=== PATIENT | male | born 1965 | race Caucasian/White ===

== ENCOUNTER → 2016-07-02 | Outpatient (CLI) | payer OTHER | LOC: GMAJ 11:22 | PROVIDERS: ATTEND Family Medicine | DX: E78.00 Pure hypercholesterolemia, unspecified (principal); Z12.5 Encounter for screening for malignant neoplasm of prostate | CPT/HCPCS: 84443; G0103 ==

== ENCOUNTER → 2016-07-05 | Outpatient (CLI) | payer BC, OTHER | LOC: GMAJ 14:30 | PROVIDERS: ATTEND Family Medicine | DX: Z79.899 Other long term (current) drug therapy (principal) ==

== ENCOUNTER → 2017-04-03 | Outpatient (CLI) | payer OTHER, BC | END | disposition home or self-care (01) | LOC: GMAJ 15:23 | PROVIDERS: ATTEND Family Medicine | DX: J30.89 Other allergic rhinitis (principal) ==

== ENCOUNTER → 2017-07-09 | Outpatient (CLI) | payer OTHER, BC | END | disposition home or self-care (01) | LOC: GMAJ 10:36 | PROVIDERS: ATTEND Family Medicine | DX: E78.2 Mixed hyperlipidemia (principal); E11.9 Type 2 diabetes mellitus without complications; I10 Essential (primary) hypertension; Z12.5 Encounter for screening for malignant neoplasm of prostate ==

== ENCOUNTER → 2017-08-25 | Outpatient (CLI) | payer OTHER, BC ==
--- NOTE | 2017-08-25 13:05 | US ---
EXAM: Testicular HISTORY: TESTICULAR PAIN COMPARISON: None TECHNIQUE: Grayscale and color Doppler sonographic evaluations of bilateral scrotums FINDINGS: Right testicle measures 4.9 x 3.2 x 2.6cm, with homogeneous echotexture. No concerning intratesticular mass nor abnormal vascularity. Epididymal head measures 1.0 x 1.0 x 0.5 cm. No hydrocele nor varicocele is detected. Left testicle measures 4.8 x 3.1 x 2.5cm, with homogeneous echotexture. No concerning intratesticular mass nor abnormal vascularity. Epididymal head measures 1.0 x 1.6 x 0.4 cm. No hydrocele nor varicocele is detected. IMPRESSION: 1. No intratesticular mass lesion, inflammation nor torsion on either side. 2. No hydrocele nor varicocele on either side. Electronically signed by: Anupam Bee MD 08/25/2017 1:05 PM [employer]
== END ==
LOC: US 11:22
PROVIDERS: ATTEND Physician Assistant
DX: N50.819 Testicular pain, unspecified (principal); N39.0 Urinary tract infection, site not specified

== ENCOUNTER 2017-08-30 14:35 | Emergency (ER) | payer OTHER, BC ==
--- NOTE | 2017-08-30 14:40 | ED.PDOC ---
History of Present Illness - General Chief Complaint: Abdominal Pain Stated Complaint: abdominal pain left side Time Seen by Provider: 08/30/17 14:39 Information Source: patient Exam Limitations: no limitations - History of Present Illness Initial Comments: Jeramy Ramos 51 y/o male stated that he had dull left sided abdominal pain this morning with feeling of urinary urgency and had vomited 2 times 2 hours after eating breakfast;no diarrhea,no constipation,.Had been treated for prostatitis last Friday after seeing his Md with complaint of urinary discomfort and blood in urine with antibiotics. Abdominal Pain Onset Location: [facility] Pain Radiation: other - anterior abdomen left side Quality: dull, intermittent Timing/Duration: 7-24 hours Improving Factors: nothing Worsening Factors: nothing Associated Symptoms: nausea/vomiting Review of Systems - Review of Systems Constitutional: States: no symptoms reported EENTM: States: no symptoms reported Respiratory: States: no symptoms reported Cardiology: States: no symptoms reported Gastrointestinal/Abdominal: States: see HPI Musculoskeletal: States: no symptoms reported Skin: States: no symptoms reported Neurological: States: no symptoms reported All other Systems: Reviewed and Negative Past Medical History (General) - Patient Medical History Hx Cardiac Disorders: Yes - NSTEMI;paroxysmal a fib Surgical History: other - cardiac stent - Social History Hx Tobacco Use: No Hx Substance Use: No Family Medical History - Family History Father Family History: Unknown Living Status: Unknown Hx Family Hypertension: Yes - family members Hx Cardiac Disease: Yes - family members Hx Family Diabetes: Yes - family members Physical Exam - Physical Exam General Appearance: Alert, Comfortable, No apparent distress Eyes, Ears, Nose, Throat Exam: normal ENT inspection Neck: non-tender, full range of motion, supple Respiratory: chest non-tender, lungs clear, normal breath sounds Cardiovascular/Chest: regular rate, rhythm, no murmur Peripheral Pulses: No deficit Gastrointestinal/Abdominal: normal bowel sounds, soft, no organomegaly, tenderness - left side abdomen, other - no hernias noted Back Exam: no CVA tenderness, no vertebral tenderness Extremity: no pedal edema, no calf tenderness Neurologic: alert, oriented x 3 Skin Exam: normal color, warm/dry Progress - Progress Progress: 08/30/17 15:17 Vital Signs - 8 hr 08/30/17 14:50 Temperature 96.8 F L Pulse Rate [ 70 Left Brachial] Respiratory 20 Rate Blood Pressure 139/94 [Left Arm] O2 Sat by Pulse 98 Oximetry - Results/Orders Results/Orders: Laboratory Results - last 24 hr 08/30/17 08/30/17 08/30/17 14:58 15:18 16:25 WBC 10.6 RBC 4.73 Hgb 14.7 Hct 43.2 MCV 91.4 MCH 31.1 H MCHC 34.0 RDW 14.4 Plt Count 244 MPV 7.5 Absolute Neuts (auto) 8.80 H Absolute Lymphs (auto) 0.90 L Absolute Monos (auto) 0.80 Absolute Eos (auto) 0.00 Absolute Basos (auto) 0.00 Neutrophils % 83.3 H Lymphocytes % 8.2 L Monocytes % 8.0 Eosinophils % 0.4 L Basophils % 0.1 PT 13.3 H INR 1.180 PTT (SP) 36.6 H Sodium 140 Potassium 3.6 Chloride 103 Carbon Dioxide 28 Anion Gap 12.6 BUN 18 Creatinine 1.59 H BUN/Creatinine Ratio 11.3 Random Glucose 155 H Serum Osmolality 284.4 Calcium 9.7 Magnesium 1.9 Total Bilirubin 0.6 Direct Bilirubin < 0.1 Indirect Bilirubin 0.5 AST 34 ALT 49 Alkaline Phosphatase 46 Creatine Kinase 560 H* CK-MB (CK-2) 16.0 H* CK-MB (CK-2) % 2.86 Troponin I < 0.02 Serum Total Protein 8.1 Albumin 5.1 Lipase 26 Urine Color Yellow Urine Appearance Clear Urine pH 5.5 Ur Specific [place] >= 1.030 Urine Protein Negative Urine Glucose (UA) Negative Urine Ketones Negative Urine Blood Large H Urine Nitrite Negative Urine Bilirubin Negative Urine Urobilinogen 0.2 Ur Leukocyte Esterase Negative Urine RBC 10-20 H Urine WBC 0 Ur Epithelial Cells 0-1 Urine Bacteria 0 Urine Opiates Screen Negative Urine Barbiturates Negative Ur Phencyclidine Scrn Negative U Amphetamin/Meth Scrn Negative U Benzodiazepines Scrn Negative U Cocaine Metab Screen Negative U Cannabinoids Screen Negative - EKG/XRAY/CT CT Ordered: Yes - abd/p-distal left ureteral stone;migel. nephrolithiasis Departure - Departure Clinical Impression: Flank pain, acute, Ureteral calculus Time of Disposition: 17:23 Disposition: Discharge to Home or Self Care Condition: Good Departure Forms: ED Discharge - Pt. Copy, Patient Portal Self Enrollment Instructions: DI for Kidney Stones, Kidney Stones -- Adult, Kidney Stones ( Alternative Therapy) Referrals: Carlton Tsai MD [Primary Care Provider] - 1-2 Weeks Prescriptions: Acetamin W/Cod #3 Tab [Tylenol w/CODEINE #3] 1 ea PO Q4HR #20 tab Tamsulosin [Flomax] 0.4 mg PO QDPC #5 cap Home Medications: Ambulatory Orders Acetamin W/Cod #3 Tab [Tylenol w/CODEINE #3] 1 ea PO Q4HR #20 tab 08/30/17 Amiodarone HCl 200 mg PO DAILY 08/30/17 Apixaban [Eliquis] 5 mg PO BID 08/30/17 Clopidogrel Bisulfate [Plavix] 75 mg PO QD 08/30/17 Dulaglutide [Trulicity] 0.75 mg SC SA 08/30/17 Evolocumab [Repatha] 140 mg SC .[id number] 08/30/17 Fexofenadine HCl [Marli Allergy] 180 mg PO PRN 08/30/17 Folic Acid 2 mg PO DAILY 08/30/17 Gabapentin 600 mg PO TID 08/30/17 Golimumab [Simponi] 50 mg SC DAILY 08/30/17 Isosorbide Mononitrate [Isosorbide Mononitrate ER] 30 mg PO DAILY 08/30/17 Metformin HCl 500 mg PO BID 08/30/17 Methotrexate Sodium [Methotrexate] 12 each PO WE 08/30/17 Metoprolol Succinate [Metoprolol Succinate ER] 12.5 mg PO BEDTIME 08/30/17 Oegce-1-Ozsy Ethyl Esters [Lovaza 1 gm] 2 cap PO DAILY 08/30/17 Tamsulosin [Flomax] 0.4 mg PO QDPC #5 cap 08/30/17 Valsartan-Hydrochlorothiazide [Diovan Hct 320-25 mg] 1 tab PO DAILY 08/30/17 diphenhydrAMINE HCL [Benadryl] 25 mg PO PRN 08/30/17 Additional Instructions: FOLLOW UP WITH UROLOGIST- DR.J.S. AGUILLON Friday09/01/2017 call his office [phone]/ [phone] 8 am/ [address] [facility]. [place] ;Continue with all home medications including antibiotics recently prescribed;Return to ER as needed;Increase oral fluid intake
[2017-08-30 14:55] VITALS: TEMP 96.8
[2017-08-30] MEDS ORDERED: LACTATED RINGERS 1,000 ML IVS ONE (15:18)
[2017-08-30] MEDS ORDERED: PROMETHAZINE HCL INJ 25 MG/ML VIAL IM ONE ×2 (15:43→17:02)
[2017-08-30] MEDS ORDERED: MORPHINE SULFATE INJ 10 MG/ML VIAL IV ONE ×3 (15:43→17:02)
--- NOTE | 2017-08-30 16:21 | CT ---
EXAM DESCRIPTION: Abdoment/Pelvis w/o Contrast CLINICAL HISTORY: 51 years Male left upper quadrant pain and vomiting COMPARISON: None. TECHNIQUE: Contiguous axial images obtained through the abdomen and pelvis without IV contrast. Reformatted images obtained. This exam was performed according to our department optimization program which includes automated exposure control, adjustment of the mA and/or kv according to patient size and/or use of iterative reconstruction technique. FINDINGS: The lung bases are clear. The liver appears unremarkable. The spleen and pancreas appear unremarkable. No adrenal masses. There is bilateral perinephric stranding. There are nonobstructing renal calculi bilaterally. Perinephric edema on the left with mild left hydronephrosis. There is an obstructing distal left ureteral calculus measuring 8 mm. Urinary bladder is incompletely distended. The gallbladder is visualized. No aneurysmal dilatation of the aorta. No bowel obstruction. Unremarkable appendix. Calcification in the prostate. No free pelvic fluid. IMPRESSION: Bilateral nonobstructing renal calculi Mild left hydronephrosis with an obstructing 8 mm distal left ureteral calculus Electronically signed by: Kailey Hunter MD 08/30/2017 4:20 PM [employer]
[2017-08-30] MEDS ORDERED: KETOROLAC TROMETHAMINE INJ 30 MG/ML VIAL IV ONE (17:19)
[2017-08-30] MEDS ORDERED: TAMSULOSIN 0.4 MG CAP PO ONE (17:21)
[2017-08-30 17:45] VITALS: BP 154/92; O2SAT 97
== END 2017-08-30 17:45 | disposition home or self-care (01) ==
LOC: ER 14:35
DX: N20.2 Calculus of kidney with calculus of ureter (principal); I25.2 Old myocardial infarction
CPT/HCPCS: 36415; 74176; 80048; 80076; 80307; 81001; 82550; 82553; 83690; 84484; 85025; 85610; 85730; J1885; J2270; J2550; J7120

== ENCOUNTER → 2017-12-10 | Outpatient (CLI) | payer BC | LOC: GMAJ 14:33 | PROVIDERS: ATTEND Family Medicine | DX: D64.9 Anemia, unspecified (principal) ==

== ENCOUNTER → 2017-12-30 | Outpatient (CLI) | payer BC | LOC: GMAJ 14:48 | PROVIDERS: ATTEND Family Medicine | DX: M79.672 Pain in left foot (principal) ==

== ENCOUNTER → 2018-01-22 | Outpatient (CLI) | payer BC ==
--- NOTE | 2018-01-22 08:35 | RAD ---
EXAM DESCRIPTION: Foot, left 3 Views CLINICAL HISTORY: FOOT PAIN COMPARISON: None Available. TECHNIQUE: AP, LATERAL, AND OBLIQUE FINDINGS: The visualized bones appear well mineralized. No acute fracture or dislocation. Soft tissues appear grossly unremarkable. Linear lucencies noted within the soft tissues of the heel. A large osteophyte along the medial aspect of the first distal phalanx could represent an osteochondroma. Enthesopathy changes are noted at the insertion of Achilles tendon and plantaris tendon. A large hooklike osteophyte is noted at the insertion of plantaris tendon. Osteoarthritic changes are noted involving the talonavicular joint with osteophyte formation. IMPRESSION: 1. No acute fracture or dislocation. 2. Talonavicular osteoarthritic changes and large osteophyte at the insertion of plantaris tendon. Electronically signed by: Mauro Rhodes MD 01/22/2018 8:34 AM CDT
== END ==
LOC: RAD 07:57
PROVIDERS: ATTEND Orthopaedic Surgery
DX: M19.072 Primary osteoarthritis, left ankle and foot (principal)

== ENCOUNTER → 2018-07-07 | Outpatient (CLI) | payer BC | LOC: GMAJ 11:01 | PROVIDERS: ATTEND Family Medicine | DX: Z12.5 Encounter for screening for malignant neoplasm of prostate (principal) ==

== ENCOUNTER → 2018-07-13 | Outpatient (CLI) | payer BC ==
--- NOTE | 2018-07-13 09:49 | CT ---
Study: CT of the Face. Indication: CHRONIC SINUSITIS, MAXILLARY Technique: Axial CT images of the face were acquired with and without intravenous contrast. Coronal and sagittal reformats performed. This exam was performed according to our departmental dose-optimization program, which includes automated exposure control, adjustment of the mA and/or kV according to patient size and/or use of iterative reconstruction technique. Comparison: None. Findings: Cervical disc disease. Small bilateral mastoid effusions. Prior left mastoidectomy suspected. Minimal mucosal thickening inferior aspect bilateral frontal sinuses, right greater than left. Minimal mucosal thickening inferior left maxillary sinus. Moderate scattered mucosal thickening throughout the ethmoid air cells. Moderate circumferential mucosal thickening throughout the right maxillary sinus with obstruction of the right ostiomeatal unit. Left ostiomeatal unit is narrowed but not completely obstructed. No air-fluid levels. Osseous wall thickening. 3 mm leftward deviation osseous nasal septum. Tiny lawrence bullosa left middle turbinate. Hypertrophy of the turbinates. No pathologic enhancement identified. Impression: Scattered paranasal sinus mucosal disease, most pronounced in the right maxillary sinus with moderate mucosal thickening and obstruction of the right ostiomeatal unit. No air-fluid levels. Additional findings as above. Electronically signed by: Aj Castellanos MD 07/13/2018 9:48 AM SIGNAL TESTER
== END ==
LOC: CT 08:38
PROVIDERS: ATTEND Family Medicine
DX: J32.0 Chronic maxillary sinusitis (principal)

== ENCOUNTER → 2019-05-31 | Outpatient (CLI) | payer BC ==
--- NOTE | 2019-05-31 14:19 | MRI ---
EXAM DESCRIPTION: Ankle,Left CLINICAL HISTORY: 53 years Male, PAIN IN LEFT ANKLE AND JOINTS OF LEFT FOOT COMPARISON: None available. TECHNIQUE: Multiplanar multiecho imaging of the left ankle was performed without gadolinium administration. FINDINGS: Flexor tendons: Normal Extensor tendons: Normal Peroneal tendons: Longitudinal split tear of the peroneus brevis tendon above the level of the ankle joint. Portion of the tendon below the level of the ankle joint demonstrates severe tendinopathy and mild tenosynovitis. Severe tendinopathy and moderate tenosynovitis of the peroneus brevis longus tendon above the level of the ankle joint. The inframalleolar portion of the peroneus longus is not well-visualized on this examination. Achillies tendon: Normal Plantar fascia: Chronic plantar fasciitis. Lateral ligaments: Anterior tibiofibular ligament: Intact Posterior tibiofibular ligament: Intact Anterior talofibular ligament: Intact Calcaneofibular ligament: Intact Posterior talofibular ligament: Intact Medial ligaments: Deep Deltoid: Intact Superficial deltoid: Intact Spring ligament: Intact Tarsal tunnel: Normal Sinus tarsi: Grossly normal Bone marrow: Bone marrow edema is identified within the head of the talus, multiple tarsal bones and visualized shafts of the fourth and fifth metatarsals. Findings most likely represent sequelae of degeneration and stress related bone marrow edema. Additional findings: None IMPRESSION: 1.Longitudinal split tear of the peroneus brevis tendon above the level of the ankle joint. Portion of the tendon below the level of the ankle joint demonstrates severe tendinopathy and mild tenosynovitis. 2. Severe tendinopathy and moderate tenosynovitis of the peroneus brevis longus tendon above the level of the ankle joint. The inframalleolar portion of the peroneus longus is not well-visualized on this examination. 3. Bone marrow edema is identified within the head of the talus, multiple tarsal bones and visualized shafts of the fourth and fifth metatarsals. Findings most likely represent sequelae of degeneration and stress related bone marrow edema. Electronically signed by: Yanelis Hobson MD 05/31/2019 2:17 PM PYTHON PROGRAMMER
== END ==
LOC: MRI 10:53
PROVIDERS: ATTEND Family Medicine
DX: S86.312A Strain of muscle(s) and tendon(s) of peroneal muscle group at lower leg level, left leg, initial encounter (principal); M65.862 Other synovitis and tenosynovitis, left lower leg; R60.0 Localized edema